=== PATIENT | male | born 1980 | race Two or more races ===

== ENCOUNTER 2020-10-20 09:32 | Outpatient (REF) | payer BC, SELFPAY ==
[2020-10-20 11:22] LABS: Alanine Aminotransferase 42 U/L (0-40); Albumin Level 4.5 g/dL (3.5-5.0); Alkaline Phosphatase 62 U/L (39-117); Anion Gap 16 (12-20); Aspartate Amino Transferase 20 U/L (5-37); Bilirubin Total 0.6 mg/dL (0.0-1.0); Blood Urea Nitrogen 11 mg/dL (9-16); Calcium 9.6 mg/dL (8.4-10.2); Carbon Dioxide 26 mmol/L (22-29); Chloride 104 mmol/L (96-108); Cholesterol 254 mg/dL; Estimated Glomerular Filt Rate > 60; Glucose Fasting 88 mg/dL (60-99); HDL Cholesterol 49 mg/dL; LDL Cholesterol Calculated 161 mg/dl; Potassium 5.2 mmol/L (3.3-5.1); Sodium 141 mmol/L (135-145); Total Protein 7.5 g/dL (6.5-8.0); Triglycerides 220 mg/dL
== END 2020-10-20 09:33 | disposition home or self-care (01) ==
LOC: HO.LAB 09:32
PROVIDERS: PCP Nurse Practitioner Family; Visit Provider Nurse Practitioner Family
DX: Z00.00 Encounter for general adult medical examination without abnormal findings (principal)
CPT/HCPCS: 36415; 80053; 80061; 84443

== ENCOUNTER 2020-10-31 11:28 | Outpatient (REF) | payer BC, SELFPAY ==
[2020-10-31 14:21] LABS: Anion Gap 16 (12-20); Carbon Dioxide 26 mmol/L (22-29); Chloride 102 mmol/L (96-108); Potassium 4.8 mmol/L (3.3-5.1); Sodium 139 mmol/L (135-145)
== END 2020-10-31 11:29 | disposition home or self-care (01) ==
LOC: HO.HMGCLDS 11:28
PROVIDERS: PCP Nurse Practitioner Family; Visit Provider Nurse Practitioner Family
DX: E87.5 Hyperkalemia (principal)
CPT/HCPCS: 36415; 80051

== ENCOUNTER 2021-04-22 08:41 | Outpatient (REF) | payer BC, SELFPAY ==
[2021-04-22 12:18] LABS: Alanine Aminotransferase 39 U/L (0-40); Albumin Level 4.5 g/dL (3.5-5.0); Alkaline Phosphatase 59 U/L (39-117); Anion Gap 10 (12-20); Aspartate Amino Transferase 20 U/L (5-37); Bilirubin Total 0.9 mg/dL (0.0-1.0); Blood Urea Nitrogen 11 mg/dL (9-16); Calcium 9.4 mg/dL (8.4-10.2); Carbon Dioxide 29 mmol/L (22-29); Chloride 106 mmol/L (96-108); Cholesterol 218 mg/dL; Estimated Glomerular Filt Rate > 60; Glucose Random 92 mg/dL (60-115); HDL Cholesterol 38 mg/dL; LDL Cholesterol Calculated 130 mg/dl; Potassium 5.1 mmol/L (3.3-5.1); Sodium 140 mmol/L (135-145); Total Protein 7.3 g/dL (6.5-8.0); Triglycerides 250 mg/dL
== END 2021-04-22 08:42 | disposition home or self-care (01) ==
LOC: HO.HMGCLDS 08:41
PROVIDERS: PCP Nurse Practitioner Family; Visit Provider Nurse Practitioner Family
DX: I10 Essential (primary) hypertension (principal)
CPT/HCPCS: 36415; 80053; 80061

== ENCOUNTER 2021-08-16 07:33 | Outpatient (REF) | payer BC, SELFPAY ==
[2021-08-16 11:47] LABS: Alanine Aminotransferase 33 U/L (0-40); Albumin Level 4.4 g/dL (3.5-5.0); Alkaline Phosphatase 62 U/L (39-117); Anion Gap 12 (12-20); Aspartate Amino Transferase 20 U/L (5-37); Bilirubin Total 0.5 mg/dL (0.0-1.0); Blood Urea Nitrogen 14 mg/dL (9-16); Calcium 9.5 mg/dL (8.4-10.2); Carbon Dioxide 26 mmol/L (22-29); Chloride 107 mmol/L (96-108); Cholesterol 184 mg/dL; Estimated Glomerular Filt Rate > 60; Glucose Fasting 86 mg/dL (60-99); HDL Cholesterol 40 mg/dL; LDL Cholesterol Calculated 122 mg/dl; Potassium 4.4 mmol/L (3.3-5.1); Sodium 141 mmol/L (135-145); Total Protein 7.2 g/dL (6.5-8.0); Triglycerides 114 mg/dL
[2021-08-16 11:52] LABS: TSH reflex Free T4 0.93 uIU/mL (0.32-4.0)
== END 2021-08-16 07:34 | disposition home or self-care (01) ==
LOC: HO.HMGCLDS 07:33
PROVIDERS: Visit Provider Nurse Practitioner Family
DX: E78.5 Hyperlipidemia, unspecified (principal); I10 Essential (primary) hypertension
CPT/HCPCS: 36415; 80053; 80061; 84443

== ENCOUNTER 2022-02-03 12:44 | Outpatient (REF) | payer BC, SELFPAY ==
[2022-02-05 09:16] LABS: Binax Internal Control QC Valid; Binax Now Covid-19 Ag Negative (Negative)
== END 2022-02-03 12:45 | disposition home or self-care (01) ==
LOC: HO.HMGCLDS 12:44
PROVIDERS: PCP Nurse Practitioner Family; Visit Provider Physician Assistant
DX: Z20.822 Contact with and (suspected) exposure to COVID-19 (principal); J02.9 Acute pharyngitis, unspecified
CPT/HCPCS: 87811; C9803

== ENCOUNTER 2022-02-24 08:04 | Outpatient (REF) | payer BC, SELFPAY ==
[2022-02-24 12:17] LABS: Cholesterol 210 mg/dL; HDL Cholesterol 50 mg/dL; LDL Cholesterol Calculated 110 mg/dl; Triglycerides 250 mg/dL
== END 2022-02-24 08:05 | disposition home or self-care (01) ==
LOC: HO.HMGCLDS 08:04
PROVIDERS: PCP Nurse Practitioner Family; Visit Provider Nurse Practitioner Family
DX: E78.5 Hyperlipidemia, unspecified (principal)
CPT/HCPCS: 36415; 80061

== ENCOUNTER 2022-04-28 07:56 | Outpatient (REF) | payer BC, SELFPAY ==
[2022-04-28 12:11] LABS: Alanine Aminotransferase 31 U/L (0-40); Albumin Level 4.5 g/dL (3.5-5.0); Alkaline Phosphatase 71 U/L (39-117); Anion Gap 16 (12-20); Aspartate Amino Transferase 19 U/L (5-37); Bilirubin Total 0.5 mg/dL (0.0-1.0); Blood Urea Nitrogen 13 mg/dL (9-16); Calcium 9.3 mg/dL (8.4-10.2); Carbon Dioxide 24 mmol/L (22-29); Chloride 105 mmol/L (96-108); Cholesterol 210 mg/dL; Estimated Glomerular Filt Rate > 60; Glucose Fasting 94 mg/dL (60-99); HDL Cholesterol 51 mg/dL; LDL Cholesterol Calculated 114 mg/dl; Potassium 4.1 mmol/L (3.3-5.1); Sodium 141 mmol/L (135-145); Total Protein 7.2 g/dL (6.5-8.0); Triglycerides 226 mg/dL
== END 2022-04-28 07:57 | disposition home or self-care (01) ==
LOC: HO.HMGCLDS 07:56
PROVIDERS: PCP Nurse Practitioner Family; Visit Provider Nurse Practitioner Family
DX: E78.5 Hyperlipidemia, unspecified (principal)
CPT/HCPCS: 36415; 80053; 80061

== ENCOUNTER 2022-07-30 06:03 | Outpatient (REF) | payer OTHER, SELFPAY ==
[2022-07-30 11:43] LABS: Appearance Urine Turbid; Color Urine Yellow; Glucose Urine UA Negative (Negative); Leukocyte Esterase Urine Negative (Negative); Nitrite Urine Negative (Negative); PH 5.5 (5.0-9.0); Specific Gravity - Urine 1.025 (1.005-1.025); Urine Blood Negative (Negative); Urine Ketones Negative (Negative); Urine Protein Negative (Neg-Trace)
[2022-07-30 11:47] LABS: MANUAL DIFF FLAG NO
[2022-07-30 11:57] LABS: Basophils Absolute Auto 0.1 X10*3/uL (0.0-0.2); Basophils Percent Auto 0.8 % (0-2); Eosinophils Absolute Auto 0.2 X10*3/uL (0.0-0.4); Eosinophils Percent Auto 2.6 % (0-4); Hematocrit 44.5 % (42.0-52.0); Hemoglobin 14.9 g/dl (14.0-18.0); Imm Gran Abs Auto 0.06 X10*3/uL (0.00-0.03); Imm Gran Pct Auto 0.7 % (0.0-0.4); Lymphocytes Absolute Auto 2.8 X10*3/uL (1.2-4.9); Mean Corpuscular HGB Conc 33.5 g/dl (31.0-36.0); Mean Corpuscular Hemoglobin 29.4 pg (27.0-33.0); Mean Corpuscular Volume 87.9 fL (80.0-98.0); Mean Platelet Volume 10.6 fL (9.4-12.4); Monocytes Absolute Auto 0.6 X10*3/uL (0.1-1.2); Monocytes Percent Auto 7.2 % (2-11); Neutrophils Absolute Auto 4.7 x10*3/uL (2.0-8.3); Neutrophils Percent Auto 55.7 % (45-73); Platelet Count 264 X10*3/uL (160-400); Red Blood Count 5.06 X10*6/uL (4.60-5.80); Red Cell Distribution Width 12.8 % (11.0-16.0); White Blood Count 8.4 X10*3/uL (4.8-10.8)
[2022-07-30 12:12] LABS: Alanine Aminotransferase 26 U/L (0-40); Albumin Level 4.2 g/dL (3.5-5.0); Alkaline Phosphatase 68 U/L (39-117); Anion Gap 12 (12-20); Aspartate Amino Transferase 18 U/L (5-37); Bilirubin Total 0.7 mg/dL (0.0-1.0); Blood Urea Nitrogen 12 mg/dL (9-16); Calcium 9.1 mg/dL (8.4-10.2); Carbon Dioxide 25 mmol/L (22-29); Chloride 105 mmol/L (96-108); Cholesterol 187 mg/dL; Estimated Glomerular Filt Rate > 60; Glucose Fasting 97 mg/dL (60-99); HDL Cholesterol 40 mg/dL; LDL Cholesterol Calculated 111 mg/dl; Potassium 4.1 mmol/L (3.3-5.1); Sodium 138 mmol/L (135-145); Total Protein 6.9 g/dL (6.5-8.0); Triglycerides 181 mg/dL
[2022-07-30 12:33] LABS: TSH reflex Free T4 0.83 uIU/mL (0.32-4.0)
== END 2022-07-30 06:04 | disposition home or self-care (01) ==
LOC: HO.HMGCLDS 06:03
PROVIDERS: PCP Nurse Practitioner Family; Visit Provider Nurse Practitioner Family
DX: F33.9 Major depressive disorder, recurrent, unspecified (principal); E78.5 Hyperlipidemia, unspecified
CPT/HCPCS: 36415; 80053; 80061; 81003; 84443; 85025

== ENCOUNTER 2023-07-21 08:44 | Outpatient (AMB) | payer OTHER, SELFPAY ==
--- NOTE | 2023-07-21 08:58 | MHC.OFFWIV ---
Intake Vital Signs 07/21/23 08:59 Height 6 ft 1 in Weight 300 lb BMI 39.6 BP 138/78 Blood Pressure Location Lt brachial Position Sitting Pulse 80 Pulse Source Pulse Oximeter Temp 98.2 F Temp Source Oral Pulse Oximetry (%) 97 Oxygen Delivery Method Room Air Intake Visit Reasons: EP, tingling in right hand ([phone]) Patient Tobacco Use Status: Former Tobacco user Allergies lisinopril Adverse Reaction (Intermediate, Uncoded 07/21/23 08:58) Cough Do you need a note to return to daycare/school/sports/work: No HPI HPI Comments History of Present Illness Details Patient is a 43-year-old male in for a sick visit. He states that he has developed tingling and numbness in his thumb and 1st 2 fingers of the right hand over the past 2 weeks. He has a history of this happening before. He works full-time at a computer desk. He has tried using a splint but states that is uncomfortable and he is not able to sleep with it on. He also states that is very stiff in is unable to use it while working. Patient was positive to kneel sign in office. Has not tried any medication for relief PFSH Medical History Hypertension Sacrococcygeal pain Family History Mother Cancer Other Mental health disorder Social History Housing: Apartment Alcohol intake: current Alcohol intake frequency: a few times a week Patient Tobacco Use Status: Former Tobacco user Years Smoked: 1 year ago e-Cigarette/Vaping Use: Currently Using Second Hand Smoke Exposure: No service: No Current occupational status: employed Current occupation: [employer] Current occupational exposures/hazards: No Cognitive needs: No Hearing needs: No Vision needs: No Review of Systems Const Details: Constitutional : No Weight loss, No Fever, No Chills, No Fatigue, No Malaise Cardiovascular : No Chest Pain, No SOB, No Dyspnea on Exertion, No Orthopnea, No Edema, No Palpitations Respiratory : No Cough, No Sputum, No Wheezing Musculoskeletal : No joint pain, No Myalgias, No Joint Swelling Skin : No Skin Lesions, No rash Neuro : No Weakness, Admits tingling and numbness of thumb and first two fingers of right hand, No Dizziness, No Headache Psych : No Anxiety/Panic, No Depression Heme/Lymph: No Bruising, No Bleeding,No Lymphadenopathy Endocrine : No Polyuria, No Polydipsia All other systems reviewed and are negative Physical Exam Vital Signs: Last Vital Signs Temp 98.2 F 07/21/23 08:59 Pulse 80 07/21/23 08:59 BP 138/78 07/21/23 08:59 Pulse Ox 97 07/21/23 08:59 Oxygen Delivery Method Room Air 07/21/23 08:59 BMI result Body Mass Index 39.6 Vital signs reviewed stable Const Other: Appearance: Alert.? Oriented X3.? No acute distress.? CVS: Normal heart rate and rhythm.? Pulses normal.? Respiratory: No respiratory distress.? Breath sounds normal.? Skin: Skin warm and dry.? Normal skin color.? Normal skin turgor.? Neuro: Oriented X 3.? No motor deficit. CN 2-12 intact, positive Tineals sign, right hand. Assessment & Plan Assessment & Plan (1) Carpal tunnel syndrome on right: Comment: Patient has been instructed to utilize his wrist splint while sleeping and while at work. In office he was putting the wrist splint on too tight which was causing a lot of the discomfort. Will also be given prednisone to be taken as directed. Instructed to follow-up with PCP. Code(s): G56.01 - Carpal tunnel syndrome, right upper limb Plan: Take your medications as prescribed. If you were prescribed antibiotics today, it is important that you take your medication to their entirety, do not skip any doses, do not finish them early. Follow-up with your primary care provider this week. Return to the emergency department with new or worsening symptoms. Such as fevers, chills, chest pain, shortness of breath, nausea, vomiting, dizziness, headache, vision changes, lethargy In case of emergency call 911 Plan Follow-up PCP Coding Level of Care Code Est Pt Level 3 (19499) Diagnoses Carpal tunnel syndrome on right G56.01 Time Spent (min) 15
[2023-07-21 08:59] VITALS: BP 138/78; PULSE 80; TEMP 36.8; O2SAT 97; BMI 39.6
== END 2023-07-21 10:09 | disposition home or self-care (01) ==
PROVIDERS: PCP Nurse Practitioner Family; Visit Provider Nurse Practitioner Primary Care
DX: G56.01 Carpal tunnel syndrome, right upper limb (principal)
CPT/HCPCS: 99213

== ENCOUNTER 2023-09-10 09:55 | Outpatient (REF) | payer OTHER, SELFPAY ==
--- NOTE | 2023-09-10 09:58 | EMG_ITS ---
Right median and ulnar motor and sensory studies were performed. Right median and lateral antecubital brachial and radial sensory studies were performed and paraspinal muscles were tested with a needle. IMPRESSION: 1. Asaz-eq-[id number] right median neuropathy across carpal tunnel. 2. Welo-dk-[id number] right ulnar neuropathy across cubital tunnel. MD SUMAYA Adkins/GONZALEZ / [phone]
== END 2023-09-10 09:56 | disposition home or self-care (01) ==
LOC: HO.NEURO 09:55
PROVIDERS: PCP Nurse Practitioner Family; Visit Provider Nurse Practitioner Family
DX: R20.0 Anesthesia of skin (principal)
CPT/HCPCS: 95886; 95910

== ENCOUNTER 2023-10-20 14:44 | Outpatient (AMB) | payer OTHER, SELFPAY ==
--- NOTE | 2023-10-20 15:04 | MHC.OFFVIS ---
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 States his symptoms started about 2 months ago and has worsen. He is having numbness and tingling that is constant through out the day. Worst at night time and in the morning.He wears a brace that helps very little. EMG done. Allergies lisinopril Adverse Reaction (Intermediate, Uncoded 10/20/23 15:06) Cough HPI POLICY WRITER-Carpal tunnel syndrome, right upper limb HPI Details Pete is a 43 year old left hand dominant man who presents for a NCS review of his right hand numbness. He complains of numbness in the thumb, index, and middle fingers of the right hand. Symptoms intermittent, but daily, worse at night. 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 He works for a [employer] center. 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/ [employer] Current occupational exposures/hazards: No Cognitive needs: No Hearing needs: No Vision needs: No Review of Systems Const All systems reviewed & are unremarkable except as noted in HPI and below Physical Exam Vital Signs: BMI result Body Mass Index 39.6 Const General: cooperative, healthy appearing and no acute distress Orientation/consciousness: patient oriented x3 HEENT Head: Yes normocephalic and Yes atraumatic Eyes EOM: EOMs intact bilaterally Resp Effort & Inspection: normal respiratory effort and able to speak in complete sentences Cardio Jugular venous distension: no JVD Skin General skin exam: turgor normal Rashes: no rashes Neuro General: patient oriented x3 Extrem Other: Evaluation of Right Upper Extremity: The patient is alert, oriented, and in no acute distress Neuro: Dense numbness in the median nerve distribution Normal sensation in the ulnar nerve distribution No thenar or intrinsic wasting Good APB muscle belly firing and good finger cross Vascular: Cap refill brisk ROM: He can make a fist and extend all his digits Skin: No lacerations or abrasions. General: No Ecchymosis. No Erythema or evidence of infection. Nerve Conduction Study: Right-side only IMPRESSION: 1. Kgin-we-jvuoktfv right median neuropathy across carpal tunnel. 2. Dwrt-xj-wedkwnoe right ulnar neuropathy across cubital tunnel. Erasto Puentes MD 09/10/2023 Psych Appearance: grossly normal Affect: normal affect Attitude: cooperative Assessment & Plan Assessment & Plan (1) Carpal tunnel syndrome on right: Comment: Patient has been instructed to utilize his wrist splint while sleeping and while at work. In office he was putting the wrist splint on too tight which was causing a lot of the discomfort. Will also be given prednisone to be taken as directed. Instructed to follow-up with PCP. Code(s): G56.01 - Carpal tunnel syndrome, right upper limb (2) Cubital tunnel syndrome on right: Code(s): G56.21 - Lesion of ulnar nerve, right upper limb Plan Assessment & Plan: 1. Right carpal tunnel syndrome, mild-moderate With dense numbness I educated him about this condition I discussed operative and non-operative treatment options The patient would like to proceed with surgery The risks and benefits of operative treatment were discussed with the patient and the patient wishes to proceed with surgery. These risks include, but are not limited to risk of damage to blood vessels, nerves, tendons, infection, recurrence, incomplete relief of preoperative symptoms, persistent pain, possible need for further surgery and the risks associated with regional blocks and anesthesia. The plan is to take the patient to the operating room sometime in the next few weeks for the following procedures: 1. Right carpal tunnel release, under local All of the preoperative paperwork including the consent was reviewed today. All the patient's questions were answered. The patient understands that they will be contacted by our tin recovery worker soon to schedule this procedure He denies Diabetes, blood thinners, asthma, heart, lung, kidney issues 2. Right cubital tunnel syndrome, mild-moderate No complaints of numbness No operative treatment indicated at this time. I did educate him about cubital tunnel syndrome. If he develops any new or worsening numbness he will follow up to discuss treatment options Scribed for Juani Varghese MD by Cliff Patel, medical records receptionist, on 10/20/23 at 3:15 PM, EST. Coding Level of Care Code New Pt Level 4 (20729) Diagnoses Carpal tunnel syndrome on right G56.01 Cubital tunnel syndrome on right G56.21
[2023-10-20 15:08] VITALS: BMI 39.6
== END 2023-10-20 15:34 | disposition home or self-care (01) ==
PROVIDERS: PCP Nurse Practitioner Family; Visit Provider Orthopaedic Surgery
DX: G56.01 Carpal tunnel syndrome, right upper limb (principal); G56.21 Lesion of ulnar nerve, right upper limb
CPT/HCPCS: 99204

== ENCOUNTER → 2023-10-20 14:44 | Outpatient (BNVA) | payer OTHER, SELFPAY | PROVIDERS: PCP Nurse Practitioner Family; Visit Provider Orthopaedic Surgery ==

== ENCOUNTER 2023-12-24 12:17 | Day surgery (SDC) | payer OTHER, SELFPAY ==
--- NOTE | 2023-12-24 12:40 | W.PM.OPN ---
Operative Note Operative Note Date of Service: 12/24/23 Narrative: Preop diagnosis: 1. Right Carpal tunnel syndrome Postop diagnosis: same Procedure: 1. Right Carpal tunnel release Surgeon: Juani Varghese MD Anesthesia: local block using 1% lidocaine with epinephrine Findings: Thickened transverse carpal ligament. EBL: Less than 5 mL Specimens: None Complications: None Disposition: Brought to recovery room in stable condition Plan: Follow-up for 10-14 days for wound check and suture removal Indications: The patient is 43 years old, with right carpal tunnel syndrome that has been unresponsive to nonoperative management. The risks and benefits of operative treatment including but not limited to risk of damage to blood vessels, nerves, tendons, infection, persistent pain, persistent symptoms, or possible need for additional surgery were discussed with the patient and the patient wishes to proceed with surgery. Procedure: Once consent was obtained a local block was performed using a combination of 1% lidocaine with epinephrine. The patient was then brought back to the operating suite and placed on the operative table in supine position. The right upper extremity was prepped and draped in a standard surgical fashion. Once assured that we had a good block, a 2.0 cm longitudinal incision was made centered over the carpal tunnel. The incision was made through the skin to the subcutaneous tissues using a #15 blade. Dissection was made down to the level of the transverse carpal ligament with care being taken to protect the palmar cutaneous nerve. Once the transverse carpal ligament was clearly visualized, a longitudinal incision was made in the transverse carpal ligament 1st using a #15 blade, then using tenotomy scissors under direct visualization. Care was taken to look for and protect the motor branch of the median nerve when seen in this area. Once satisfied with our carpal tunnel release the wound was copiously irrigated with normal saline and hemostasis was obtained with a brief period of local pressure. The skin edges were reapproximated with some 5.0 nylon suture material and a sterile dressing was applied. The patient appears to have tolerated the procedure well and with no complications. All digits were well vascularized at the conclusion of the case.
[2023-12-24 13:03] VITALS: BP 162/90; PULSE 95; RESP 20; TEMP 36.6; O2SAT 97; BMI 40.5
--- NOTE | 2023-12-24 14:03 | MHC.SHP ---
Pre-Procedural Eval Section A - 24 Hr Update-Section A only Date of Service: 12/24/23 The patient is an INPATIENT: No Changes since office visit: No Cold of Flu in the past 2 weeks, No New Medical Problems, No Changes in Medication and No Patient answered all questions The patient has been examined within 24 hours of the surgical procedure. The History & Physical has been completed within 30 days and I have reviewed it.: Yes Section B - Complete if H&P > 30 days Chief Complaint: Carpal tunnel syndrome, right upper limb Allergies: Allergies Allergy/AdvReac Type Severity Reaction Status Date / Time lisinopril AdvReac Intermediate Cough Uncoded 12/24/23 13:15 Exam Exam Comment: Right carpal tunnel syndrome Plan Diagnosis/Plan: Unchanged I have reviewed the history and physical and performed a pertinent physical examination on my patient. No changes have occurred unless specified. Time Spent With Patient Time: Total time managing care of this patient today ____ minutes.
[2023-12-24 16:18] VITALS: BP 138/81; PULSE 74; RESP 17; TEMP 37; O2SAT 96
== END 2023-12-24 16:30 | disposition home or self-care (01) ==
PROVIDERS: PCP Nurse Practitioner Family; Visit Provider Orthopaedic Surgery
PROC: (CPT 64721; principal; 2023-12-24 14:00)
DX: G56.01 Carpal tunnel syndrome, right upper limb (principal); I10 Essential (primary) hypertension
CPT/HCPCS: 64721; J0171

== ENCOUNTER → 2023-12-24 12:17 | Outpatient (BNV) | payer OTHER, SELFPAY | PROVIDERS: PCP Nurse Practitioner Family; Visit Provider Orthopaedic Surgery | DX: G56.01 Carpal tunnel syndrome, right upper limb (principal) | CPT/HCPCS: 64721 ==

== ENCOUNTER 2024-01-06 13:36 | Outpatient (AMB) | payer OTHER, SELFPAY ==
--- NOTE | 2024-01-06 13:43 | MHC.OFFVIS ---
Intake Visit Reasons: PO RT CTR 12/24/23 AR Intake Note: Pete a 43 year old male who presents today for a post operative right CTR on 12/24/23 with AR. Patient reports he is doing well, states tingling sensation in his index finger. Allergies lisinopril Adverse Reaction (Intermediate, Uncoded 01/06/24 13:53) Cough HPI HPI PO RT CTR 12/24/23 AR: Details: Patient is a 43-year-old male who presents for 2 week postop for right carpal tunnel syndrome. Patient reports that he is doing well, and that his the tunnel symptoms have resolved since surgery. The patient reports that he feels as if the inter web spaces of his right hand get swollen periodically, and he feels that his right hand has gotten slightly stiff. However, he reports that he has experienced 1 episode of tingling in the right index finger today. No other episodes of tingling since procedure. Patient also inquires as to when he can submerge his hand. No other acute complaints at this time. [facility] Medical History Hypertension Sacrococcygeal pain Family History Mother Cancer Other Mental health disorder Social History Housing: Apartment Alcohol intake: current Alcohol intake frequency: a few times a week Patient Tobacco Use Status: Former Tobacco user Years Smoked: 1 year ago e-Cigarette/Vaping Use: Currently Using Second Hand Smoke Exposure: No service: No Current occupational status: employed Current occupation: Grokker/ warehouse incentive selector/ [email or web address] Current occupational exposures/hazards: No Cognitive needs: No Hearing needs: No Vision needs: No Review of Systems Const All systems reviewed & are unremarkable except as noted in HPI and below Physical Exam Const Other: Patient is alert, oriented, cooperative, and in no acute distress HEENT Head: Yes normocephalic and Yes atraumatic Resp Effort & Inspection: normal respiratory effort and able to speak in complete sentences Cardio Jugular venous distension: no JVD Neuro General: gait normal Cognition (Neuro): normal cognition Extrem Other: Patient is alert, oriented, and in no acute distress. Neuro: Median, ulnar, radial nerves motor and sensory intact and sensation is normal to the tips of all digits. Patient denies any tingling in the right index finger at this time Vascular: Cap refill brisk Pain: Patient reports pain in the right hand at this time. ROM: Patient is able to extend all digits well With encouragement, patient is able to make a tight fist Wrist range of motion full and intact Skin: Well healing incision site, no evidence of dehiscence. General: No ecchymosis, erythema, or evidence of infection. Psych: Appears grossly normal Affect normal Attitude cooperative Psych Appearance: grossly normal Mental Status: mental status grossly normal Assessment & Plan Assessment & Plan (1) Carpal tunnel syndrome on right: Comment: Patient has been instructed to utilize his wrist splint while sleeping and while at work. In office he was putting the wrist splint on too tight which was causing a lot of the discomfort. Will also be given prednisone to be taken as directed. Instructed to follow-up with PCP. Code(s): G56.01 - Carpal tunnel syndrome, right upper limb Category: Medical Plan 1. 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 Orders: Orders OT Evaluation and Treatment 01/06/24 G56.01 - Carpal tunnel syndrome, right upper limb Coding Level of Care Code Global (23084) Diagnoses Carpal tunnel syndrome on right G56.01
== END 2024-01-06 14:23 | disposition home or self-care (01) ==
PROVIDERS: PCP Nurse Practitioner Family
DX: G56.01 Carpal tunnel syndrome, right upper limb (principal)
CPT/HCPCS: 99024

== ENCOUNTER → 2024-01-06 13:36 | Outpatient (BNVA) | payer OTHER, SELFPAY | PROVIDERS: PCP Nurse Practitioner Family ==

== ENCOUNTER 2024-02-03 15:30 | Outpatient (RCR) | payer OTHER, SELFPAY ==
--- NOTE | 2024-01-21 16:26 | MHC.OT.EP ---
[address] [phone] Occupational Therapy Plan of Care Patient Name: Pete Cook Date of Evaluation: 01/21/24 Diagnosis: Pain Location: volar side of hand/ wrist Pain Score: 5 Pain Scale Used: Numeric (0 - 10) Aggravating Factors: Alleviating Factors: Assessment: Pt is a 43 yr old L hand dominant male who had CTR release surgery of his R hand/ wrist on 12/23. He report mild /intermittent numbness and tingling but a great improvement since his surgery and is pleased w/ the result. Pt is concerned in regards to weakness in his R UE. 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 He has been referred to skilled OT therapy to increase strength and functional use of his R hand/UE Frequency and Duration: The patient will be seen 1 x a week for 4 weeks Short Term Goals: SEE BELOW Covered Button Maker Goals: Pt will be compliant w/ his HEP Pt will gain 30 lbs of R spinner cap frame strength (100 lbs) Pt will report RTW w/ out difficulty Treatment Plan: Therapeutic Exercise Therapeutic Activity Home Exercise Program Splinting Neuro Re-ed Patient Education Desensitization/Sensory Re-ed Edema Control ADL Training Ultrasound NMES Iontophoresis Paraffin Fluidotherapy MHP Cold Packs Joint Mobilization Soft Tissue Mobilization Kinesiotaping Other (see comments) Electronically Signed By: Fadumo Yanez OTR/L Please Sign and return to therapist. Thank you once again for your referral.
== END 2024-02-03 16:15 | disposition home or self-care (01) ==
LOC: HO.OT 15:30
PROVIDERS: PCP Nurse Practitioner Family
DX: G56.01 Carpal tunnel syndrome, right upper limb (principal)
CPT/HCPCS: 97035; 97110; 97140; 97165; 97535

== ENCOUNTER 2024-03-30 15:35 | Outpatient (AMB) | payer OTHER, SELFPAY ==
[2024-03-30 15:42] VITALS: BP 142/90; PULSE 73; O2SAT 97; BMI 41.2
--- NOTE | 2024-03-30 15:42 | MHC.PC.OV ---
Vital Signs 03/30/24 15:42 Height 6 ft 1 in Weight 312 lb BMI 41.2 BP 142/90 H Blood Pressure Location Rt brachial Position Sitting Pulse 73 Pulse Source Pulse Oximeter Pulse Oximetry (%) 97 Oxygen Delivery Method Room Air Intake Visit Reasons: PE Allergies lisinopril Adverse Reaction (Intermediate, Uncoded 03/30/24 15:42) Cough Medication List - Last Reconciled 03/30/24 by RABIA Gordon atorvastatin 10 mg PO three times per week; take one tablet 3 times a week at bedtime buspirone 7.5 mg PO BID 90 days cyclobenzaprine 10 mg PO BEDTIME PRN 30 days escitalopram oxalate 10 mg (1/2 x 20 mg) PO DAILY 90 days losartan 25 mg PO DAILY Tobacco use date assessed: 03/30/24 Dental Screening Dental Screen Date: 03/30/24 Did you have a dental visit in the last 12 months?: Yes Did you have a dental problem in the last 6 months where you did not have access to dental care?: No Was dental information given to patient?: Patient has dentist HPI PE HPI Details Pt is here for a PE. Will order labs. Pt's blood pressure is elevated today, though he reports being off his meds for approximately 1 year. 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 1. Little interest or pleasure in doing things: not at all 2. Feeling down, depressed, or hopeless: not at all 3. Trouble falling or staying asleep, or sleeping too much: not at all 4. Feeling tired or having little energy: not at all 5. Poor appetite or overeating: not at all 6. Feeling bad about yourself - or that you are a failure or have let yourself or your family down: not at all 7. Trouble concentrating on things, such as reading the newspaper or watching television: not at all 8. Moving or speaking so slowly that other people could have noticed. Or the opposite - being so fidgety or restless that you have been moving around a lot more than usual: not at all 9. Thoughts that you would be better off or of hurting yourself in some way: not at all Total score: 0 Depression Screening Interpretation: Negative Depression Screening Done: Yes 60826 - PHQ-9 Billing: Yes Source: Developed by Drs. Venkatesh Yarbrough, Kassandra Lawrence, Eitan Ndiaye and colleagues, with an educational braden from [employer]. Thrive Questionnaire Date Thrive assessed: 02/08/24 I am a: Patient What is your living situation today?: I have a steady place to live Within the past 12 months, did the food you bought not last and you didn't have the money to get more?: Never true Within the past 12 months, did you worry whether your food would run out before you got money to buy more?: Never true Do you have trouble paying for medicines?: No Do you have trouble getting transportation to medical appointments?: No Do you have trouble paying your heating and electricity bill?: No Do you have trouble taking care of your child, family member or friend?: No Do you have trouble with day-to-day activities such as bathing, preparing meals, shopping, managing finances, etc.?: No Are you currently unemployed and looking for a job?: No Are you interested in more education?: No Please select the resources that you would like help with: None Currently or been in a relationship where the following occur: No concerns reported THRIVE Score: 0 LANNY-7 AMB Questionnaire LANNY-7 Date LANNY - 7 assessed: 06/12/22 Source: Developed by Drs. Venkatesh Yarbrough, Kassandra Lawrence, Eitan Ndiaye and colleagues, with an educational braden from [employer]. LANNY-7 Assessment Billing LANNY-7 Assessment Tool: pt declined-do not bill Review of Systems Const Denies chills and Denies fever(s) Eyes Denies blurry vision ENT Denies vertigo, Denies dizziness and Denies sore throat Card Denies chest pain at rest, Denies chest pain with activity, Denies diaphoresis, Denies dyspnea and Denies dyspnea on exertion Resp Denies cough, Denies dyspnea, Denies dyspnea on exertion and Denies wheezing GI Denies abdominal pain, Denies melena, Denies hematochezia, Denies constipation, Denies diarrhea and Denies loose stools Denies hematuria Musc Denies numbness and Denies tingling Skin/Breast Denies lesions Neuro Denies vertigo, Denies dizziness, Denies numbness and Denies tingling Psych Denies anxiety, Denies depression, Denies homicidal ideation, Denies suicidal ideation and Denies other (substance abuse) Aller/Immun Denies wheezing Physical exam (Primary Care) Vital Signs: Last Vital Signs Pulse 73 03/30/24 15:42 BP 142/90 H 03/30/24 15:42 Pulse Ox 97 03/30/24 15:42 Oxygen Delivery Method Room Air 03/30/24 15:42 BMI result Body Mass Index 41.2 Tobacco/Smoking Status: Tobacco use Status Tobacco use date assessed 03/30/24 03/30/24 15:47 Patient Tobacco Use Status Former Tobacco user 03/30/24 15:47 e-Cigarette/Vaping Use Currently Using 03/30/24 15:47 PHQ-9: PHQ-9 Score PHQ-9: Total score 0 03/30/24 15:50 Depression Screening Interpretation: Negative Thrive Assessment: Date of Thrive Assessment Date Thrive assessed 02/08/24 03/30/24 15:47 Currently or been in a relationship where the following occur: No concerns reported Const General: cooperative Nutritional Appearance: obese morbidly obese Orientation/consciousness: patient oriented x3 HENMT Head: Yes normal to inspection, Yes normocephalic and Yes atraumatic Ears: TM's normal bilaterally Eyes General: appearance normal, both eyes and all related structures Alignment and Position: alignment normal and position normal Neck Neck: Yes normal visual inspection, Yes no lymphadenopathy and Yes supple Resp Effort & Inspection: normal respiratory effort Auscultation: clear to auscultation bilaterally Cardio Rate: regular rate Rhythm: regular rhythm Heart sounds: S1 normal heart sound present, S2 normal heart sound present and no murmurs GI Other: small umbilical hernia Palpation (GI): Soft to palpation and nontender Auscultation: normal bowel sounds Male General Exam: Yes normal external exam Penis: normal penis Scrotum: scrotum normal, testes descended bilaterally and no inguinal hernias Testes: no testicular mass Skin Rashes: no rashes Neuro General: patient oriented x3, moves all extremities, no focal motor deficits and deep tendon reflexes 2+ bilaterally Romberg Test: Negative Psych Appearance: grossly normal Mental Status: mental status grossly normal Speech and movement: Normal speech and movement present Affect: normal affect Attitude: cooperative Thought process: Normal thought process present Thought content: Normal thought content present Insight: Good insight present (Psych) Judgement: Good judgement present (Psych) Assessment and Plan Assessment & Plan (1) Physical exam: Code(s): Z. - Encounter for general adult medical examination without abnormal findings Plan: Labs ordered Plan The patient agreed to the use of a medical economics consultant for this encounter. Scribed for RABIA Nation by Karen Teresa medical economics consultant, on 03/30/2024 at 15:45 EST. Orders: Orders Comprehensive [place]. Panel Fast Today Z00.00 - Encounter for general adult medical examination without abnormal findings UA CC w/rflx Micro + Cult Today Z00.00 - Encounter for general adult medical examination without abnormal findings Complete Blood Count Auto Diff Today Z00.00 - Encounter for general adult medical examination without abnormal findings TSH reflex Free T4 Today Z00.00 - Encounter for general adult medical examination without abnormal findings Lipid Panel Today Z00.00 - Encounter for general adult medical examination without abnormal findings Medications: Changed From buspirone 7.5 mg PO BID 30 days 60 tabs 1RF To buspirone 7.5 mg PO BID 180 tabs 1RF 90 days Refilled escitalopram oxalate 10 mg (1/2 x 20 mg) PO DAILY 45 tabs 1RF 90 days losartan 25 mg PO DAILY 90 tabs 1RF atorvastatin 10 mg PO three times per week; take one tablet 3 times a week at bedtime 45 tabs 1RF Coding Level of Care Code Est Pt Prev Care 40-64y(43707) Diagnoses Physical exam Z00.00
== END 2024-03-30 15:59 | disposition home or self-care (01) ==
PROVIDERS: PCP Nurse Practitioner Family; Visit Provider Nurse Practitioner Family
DX: Z00.00 Encounter for general adult medical examination without abnormal findings (principal)

== ENCOUNTER → 2024-03-30 15:35 | Outpatient (BNVA) | payer OTHER, SELFPAY | PROVIDERS: PCP Nurse Practitioner Family; Visit Provider Nurse Practitioner Family | DX: Z00.01 Encounter for general adult medical examination with abnormal findings (principal); R03.0 Elevated blood-pressure reading, without diagnosis of hypertension | CPT/HCPCS: 96127 ==

== ENCOUNTER 2025-04-14 08:22 | Outpatient (REF) | payer OTHER, SELFPAY ==
[2025-04-14 10:12] LABS: MANUAL DIFF FLAG NO
[2025-04-14 10:16] LABS: Appearance Urine Clear; Glucose Urine UA Negative (Negative); PH 5.0 (5.0-9.0); Specific Gravity - Urine 1.020 (1.005-1.025)
[2025-04-14 10:29] LABS: Hematocrit 45.3 % (42.0-52.0); Hemoglobin 15.7 g/dl (14.0-18.0); Imm Gran Abs Auto 0.05 X10*3/uL (0.00-0.03); Imm Gran Pct Auto 0.5 % (0.0-0.4); Lymphocytes Absolute Auto 2.8 X10*3/uL (1.2-4.9); Mean Corpuscular HGB Conc 34.7 g/dl (31.0-36.0); Mean Corpuscular Hemoglobin 29.6 pg (27.0-33.0); Mean Corpuscular Volume 85.5 fL (80.0-98.0); NRBC Abs Auto 0.000 X10*3/uL (0.0-0.012); NRBC Pct Auto 0.0 /100WBC (0.0-0.2); Platelet Count 222 X10*3/uL (160-400); Red Blood Count 5.30 X10*6/uL (4.60-5.80); White Blood Count 9.1 X10*3/uL (4.8-10.8)
[2025-04-14 10:59] LABS: Alanine Aminotransferase 40 U/L (0-40); Albumin Level 4.6 g/dL (3.5-5.0); Alkaline Phosphatase 68 U/L (39-117); Anion Gap 9 (12-20); Aspartate Amino Transferase 27 U/L (5-37); Blood Urea Nitrogen 12 mg/dL (9-16); Calcium 9.1 mg/dL (8.4-10.2); Carbon Dioxide 27 mmol/L (22-29); Chloride 105 mmol/L (96-108); Cholesterol 247 mg/dL (<200); Estimated Glomerular Filt Rate > 60; HDL Cholesterol 42 mg/dL (>40); Potassium 3.9 mmol/L (3.3-5.1); Sodium 137 mmol/L (135-145); Total Protein 7.3 g/dL (6.5-8.0); Triglycerides 289 mg/dL (<150)
== END 2025-04-14 08:23 | disposition home or self-care (01) ==
LOC: HO.HMGCLDS 08:22
PROVIDERS: PCP Nurse Practitioner Family; Visit Provider Nurse Practitioner Family
DX: I10 Essential (primary) hypertension (principal); E78.5 Hyperlipidemia, unspecified
CPT/HCPCS: 36415; 80053; 80061; 81003; 84443; 85025

== ENCOUNTER 2025-04-18 09:00 | Outpatient (AMB) | payer OTHER, SELFPAY ==
--- NOTE | 2025-04-18 09:03 | A.OFFPC_ITS ---
Vital Signs 04/18/25 09:04 Height 6 ft 1 in Weight 325 lb BMI 42.9 BP 138/86 Blood Pressure Location Lt brachial Position Sitting Respiration 18 Pulse 76 Pulse Source Pulse Oximeter Temp 97.9 F Temp Source Oral Pulse Oximetry (%) 97 Oxygen Delivery Method Room Air Intake Visit Reasons: PE Intake Note: Pt is here today for PE. Allergies lisinopril Adverse Reaction (Intermediate, Uncoded 04/18/25 09:18) Cough Medication List - Last Reconciled 04/18/25 by REBECCA Gordon- atorvastatin 10 mg PO three times per week; take one tablet 3 times a week at bedtime buspirone 7.5 mg PO BID 90 days cyclobenzaprine 10 mg PO BEDTIME PRN 30 days escitalopram oxalate 10 mg (1/2 x 20 mg) PO DAILY 90 days losartan 25 mg PO DAILY Tobacco use date assessed: 04/18/25 Dental Screening Dental Screen Date: 03/30/24 HPI PE HPI Details History of Present Illness The patient is a 44-year-old male presenting for a physical examination and management of hyperlipidemia. The patient reports a history of hyperlipidemia and has been off his medications, including atorvastatin, escitalopram, and losartan, due to a change in insurance and employment. He recently obtained new employment, which he enjoys, but this transition led to a lapse in medication adherence. The patient acknowledges weight gain and has been advised on dietary modifications to reduce sugar and carbohydrate intake. He has been instructed to repeat his laboratory tests in two months to monitor his lipid profile. An umbilical hernia was noted during the examination, but the rest of the physical exam was unremarkable. Health Maintenance - Advised on weight management and dieta ry modifications to reduce sugar and carbohydrate intake - Plan to repeat laboratory tests in two months to monitor lipid profile Social History - Employment: Recently started a new job , which he enjoys Review of Systems - Cardiovascular: Denies chest pain - Respiratory: Denies dyspnea - Gastrointestinal: Denies abdominal clement n, blood in stool, constipation, diarrhea - Psychiatric: Denies suicidal ideation, denies homicidal ideation Physical Exam General: Cooperative, healthy appearing, comfortable, no acute distress and well developed, morbidly obese Orientation: Patient oriented x3 Limitations: No limitations Head: Normal to inspection Ears: Hearing grossly normal bilaterally Nose: Normal external nose present Face and sinus: Normal facial exam Eyes: Appearance normal, both eyes and all related structures Neck: Normal visual inspection and Yes full ROM Respiratory: Normal respiratory effort and able to speak in complete sentences. Clear to auscultation bilaterally Cardiovascular: Regular rate and rhythm. Normal S1 and S2 GI: Normal to inspection. Soft to palpation and nontender. Does have an umbilical hernia noted : testicles without masses/lesions and no hernias appreciated Skin: No rashes or lesions noted Neuro: Patient oriented x3 Extremities: Normal to inspection Results - Labs: Elevated cholesterol, LDL, and t riglycerides Plan 1. Hyperlipidemia The patient has been off atorvastatin due to a change in insurance and employment. He is advised to restart atorvastatin and repeat his lipid profile in two months. 2. Umbilical Hernia An umbilical hernia was noted during the examination. No immediate intervention was discussed during this visit. 3. morbid obesity will work on diet, call insurance to see which GLP-1 is covered Discussion Notes I discussed with the patient the importance of restarting atorvastatin to manage his hyperlipidemia and advised him to repeat his lipid profile in two months. We also talked about dietary modifications to aid in weight management, focusing on reducing sugar and carbohydrate intake. Patient Instructions - Restart atorvastatin as previously pre scribed. - Schedule a follow-up appointment in si x months. - Repeat lipid profile in two months. - Follow dietary advice to reduce sugar and carbohydrate intake. 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 1. Little interest or pleasure in doing things: not at all 2. Feeling down, depressed, or hopeless: not at all 3. Trouble falling or staying asleep, or sleeping too much: not at all 4. Feeling tired or having little energy: not at all 5. Poor appetite or overeating: not at all 6. Feeling bad about yourself - or that you are a failure or have let yourself or your family down: not at all 7. Trouble concentrating on things, such as reading the newspaper or watching television: not at all 8. Moving or speaking so slowly that other people could have noticed. Or the opposite - being so fidgety or restless that you have been moving around a lot more than usual: not at all 9. Thoughts that you would be better off or of hurting yourself in some way: not at all Total score: 0 Depression Screening Interpretation: Negative Depression Screening Done: Yes 56882 - PHQ-9 Billing: Yes Source: Developed by Drs. Venkatesh Yarbrough, Kassandra Lawrence, Eitan Ndiaye and colleagues, with an educational braden from [employer]. Thrive Questionnaire Date Thrive assessed: 04/18/25 I am a: Patient What is your living situation today?: I have a steady place to live Within the past 12 months, did the food you bought not last and you didn't have the money to get more?: Never true Within the past 12 months, did you worry whether your food would run out before you got money to buy more?: Never true Do you have trouble paying for medicines?: No Do you have trouble getting transportation to medical appointments?: No Do you have trouble paying your heating and electricity bill?: No Do you have trouble taking care of your child, family member or friend?: No Do you have trouble with day-to-day activities such as bathing, preparing meals, shopping, managing finances, etc.?: No Are you currently unemployed and looking for a job?: No Are you interested in more education?: No Please select the resources that you would like help with: None Currently or been in a relationship where the following occur: No concerns repo rted THRIVE Score: 0 AUDIT C Alcohol Use Questionnaire (AUDIT-C) 1. How often do you have a drink containing alcohol?: 2-4 times a month 2. How many drinks containing alcohol do you have on a typical day when you are drinking?: 5 or 6 3. How often do you have six or more drinks on one occasion?: Monthly Total Score: 6 Score Reviewed/Action Taken: Yes LANNY-7 AMB Questionnaire LANNY-7 Date LANNY - 7 assessed: 04/18/25 Feeling nervous, anxious, or on edge: 0 = Not at all Not being able to stop or control worryin = Not at all Worrying too much about different things: 0 = Not at all Trouble relaxin = Not at all Being so restless that it is hard to sit still: 0 = Not at all Becoming easily annoyed or irritable: 0 = Not at all Feeling afraid as if something awful might happen: 0 = Not at all Total ALNNY-7 score (0-4 normal; 5-9 mild; 10-14 moderate; 15-21 severe): 0 Source: Developed by Drs. Venkatesh Yarbrough, Kassandra Lawrence, Eitan Ndiaye and colleagues, with an educational braden from [employer]. LANNY-7 Assessment Billing LANNY-7 Assessment Tool: LANNY-7 Assessment 80461 Physical exam (Primary Care) Vital Signs: Last Vital Signs Temp 97.9 F 04/18/25 09:04 Pulse 76 04/18/25 09:04 Resp 18 04/18/25 09:04 BP 138/86 04/18/25 09:04 Pulse Ox 97 04/18/25 09:04 Oxygen Delivery Method Room Air 04/18/25 09:04 BMI result Body Mass Index 42.9 Tobacco/Smoking Status: Tobacco use Status Tobacco use date assessed 04/18/25 04/18/25 09:09 Patient Tobacco Use Status Current everyday Tobacco 04/18/25 09:09 e-Cigarette/Vaping Use Currently Using 04/18/25 09:09 PHQ-9: PHQ-9 Score PHQ-9: Total score 0 04/18/25 09:09 Depression Screening Interpretation: Negative Thrive Assessment: Date of Thrive Assessment Date Thrive assessed 04/18/25 04/18/25 09:09 Currently or been in a relationship where the following occur: No concerns reported Coding Level of Care Code Est Pt Prev Care 40-64y(11212) Diagnoses Dyslipidemia E78.5 Physical exam Z00.00 Additional Codes LANNY-7 Assessment Billing - LANNY-7 Assessment Tool: LANNY-7 Assessment 15115 ([id number]) PHQ-9 - 28384 - PHQ-9 Billing: Yes ([id number]) Assessment & Plan Assessment & Plan (1) Dyslipidemia: Code(s): E78.5 - Hyperlipidemia, unspecified Category: Medical (2) Physical exam: Code(s): Z00.00 - Encounter for general adult medical examination without abnormal findings Category: Medical Plan . Orders: Orders Comprehensive [place]. Panel Fast 2 Months E78.5 - Hyperlipidemia, unspecified Lipid Panel 2 Months E78.5 - Hyperlipidemia, unspecified Medications: Refilled buspirone 7.5 mg PO BID 180 tabs 1RF 90 days losartan 25 mg PO DAILY 90 tabs 1RF atorvastatin 10 mg PO three times per week; take one tablet 3 times a week at bedtime 45 tabs 1RF escitalopram oxalate 10 mg (1/2 x 20 mg) PO DAILY 45 tabs 1RF 90 days
[2025-04-18 09:04] VITALS: BP 138/86; PULSE 76; RESP 18; TEMP 36.6; O2SAT 97; BMI 42.9
--- OUTSIDE RECORDS SUMMARY | 2025-04-18 09:51 | XMS_ITS | Clinical Summary ---
Author Organization [facility] it Address [address] [place] [address] Care Team Providers Care Senior Pensions Administrator Name Role Phone Unavailable Primary Care Provider Unavailabl e Social History Tobacco Use Types Packs/Day Years Used Date Smoking Tobacco: Never Assessed Sex and Gender Information Value Date Recorded Sex Assigned at Not on file Legal Sex Male 4:17 AM EST Gender Identity Not on file Sexual Orientation Not on file Plan of Treatment Health Maintenance Due Date Last Done Comments DTaP,Tdap,and Td Vaccines (1 - Tdap) 2000 Hepatitis B Vaccines (1 of 3 - 19+ 3-dose series) 2000 HPV Vaccines (1 - 3-dose SCD M series) 2008 Depression Screening 07/13/2024 COVID-19 Vaccine (1 - 2023-2 5 season) 2025 Influenza Vaccine (#1) 2025 RSV Immunization Adult Patie nts (1 - 1-dose 75+ series) 2056 HIB Vaccines Aged Out No longer eligi ble based on patient's age to complete this topic Hepatitis A Vaccines Aged Out No long er eligible based on patient's age to complete this topic IPV Vaccines Aged Out No longer eligi ble based on patient's age to complete this topic MMR Vaccines Aged Out No longer eligi ble based on patient's age to complete this topic Meningococcal ACWY Vaccine Aged Out N o longer eligible based on patient's age to complete this topic Meningococcal B Vaccine Aged Out No l onger eligible based on patient's age to complete this topic Pneumococcal Vaccine: Pediat rics (0 to 5 Years) and At-Risk Patients (6 to 49 Years) Aged Out No longer eligible b ased on patient's age to complete this topic RSV Immunization Patients Un sandor 20 months Aged Out No longer eligible b ased on patient's age to complete this topic Varicella Vaccines Aged Out No longer eligible based on patient's age to complete this topic
== END 2025-04-18 09:31 | disposition home or self-care (01) ==
LOC: HO.HMCC 09:01
PROVIDERS: PCP Nurse Practitioner Family; Visit Provider Nurse Practitioner Family
DX: E78.5 Hyperlipidemia, unspecified (principal); Z00.00 Encounter for general adult medical examination without abnormal findings

== ENCOUNTER → 2025-04-18 09:00 | Outpatient (BNVA) | payer OTHER, SELFPAY | PROVIDERS: PCP Nurse Practitioner Family; Visit Provider Nurse Practitioner Family | DX: Z00.00 Encounter for general adult medical examination without abnormal findings (principal); E78.5 Hyperlipidemia, unspecified; K42.9 Umbilical hernia without obstruction or gangrene | CPT/HCPCS: 96127 ==